=== PATIENT | female | born 1965 | race African-American/Black ===

== ENCOUNTER → 2017-08-09 | Outpatient (CLI) | payer OTHER ==
[~2017-08-09] MED LIST: ACCUNEB SO1.25 MG/1 INH; IBUPROFEN 200200 M1 PO; MEDROLDOSEPACK PO; MOBIC15 MG PO; SYMBICORT160 MCG/4. INH
--- NOTE | 2017-09-05 13:42 | PAINCON ---
[address] [address] PAIN MANAGEMENT CONSULTATION Name: TONIO PERSAUD Room: [facility]#: [id number] Admission: 08/09/17 Attend Phys: Allie Vergara MD Discharge: Date of : 69 Report #: [id number] THIS REPORT FOR: //name// CC: VANESSA KHAN DO Vanessa Vergara DATE OF SERVICE: 08/09/2017 CHIEF COMPLAINT: Pain down the low back and into the right leg. HISTORY OF PRESENT ILLNESS: The patient is a 52-year-old female who has been referred to the pain clinic for evaluation. The patient states that she is having pain and discomfort greater than a year's duration involving her low back. She describes it as achy, sharp involving her low back with radiation down into her leg. Rates it as an 8/10. Denies any problem with her bowel or bladder dysfunction. She has not had back surgery. Denies any trauma to her back. She describes it as continuous aching and sharp. Rates it as an 8/10 on most occasions. Also, notes some pain and discomfort in her left and right shoulder, midline back, upper and lower as well as some pain and discomfort along the right flank and hip area. She has tried [id number] medications like ibuprofen with no long-term benefit. The patient has had pain that radiates down the lower portion of her back into the right hip and into the lateral and posterior portion of her right leg to the knee. She has noted some changes in sensation in her left leg. States that she is intolerant of muscle relaxers secondary to causing drowsiness. She has been seen by a chiropractor in August of 2016. Also, notes that she has gone to physical therapy. ALLERGIES: CODEINE, CORTICOSTEROIDS. CURRENT MEDICATIONS: Albuterol inhalation, Symbicort 160/4.5 inhalation q. 6 hours p.r.n., ibuprofen 200 mg q. 6 hours p.r.n. PAST MEDICAL HISTORY: Allergic rhinitis, asthma, GERD, renal cyst. PAST SURGICAL HISTORY: Hysterectomy, knee surgery. 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 She is working at this juncture. LABORATORY DATA: 1. MRI of the lumbar spine dated 04/26/2017 reveals L2-L3 facet arthropathy and ligamentum flavum thickening present. There is mild bilateral neural foraminal stenosis. No significant spinal canal narrowing. Thecal sac 1.3 cm AP. 2. L3-L4 facet arthropathy and ligamentum flavum is present. There is mild bilateral neural foraminal stenosis. No significant canal narrowing 1.5 cm AP. 3. L4-L5 facet arthropathy and ligamentum flavum [place] [address] PAIN MANAGEMENT CONSULTATION Name: TONIO PERSAUD Room: [facility]#: [id number] Admission: 08/09/17 Attend Phys: Allie Vergara MD Discharge: Date of : 69 Report #: [id number] is mild bilateral neural foraminal stenosis. Thecal sac 1.3 cm AP. 4. L5-S1 facet arthropathy and ligamentum flavum thickening is present. There is mild bilateral neural foraminal stenosis. Thecal sac 1.3 cm AP. 5. Hyperintense lesion in the kidney bilaterally. Likely represent renal cysts. 6. 2.8 cm right adnexal cyst. Ultrasound evaluation may be considered. REVIEW OF SYSTEMS: Twelve-point review. General health is good, wears glasses/contacts, asthma/wheezing, frequent urination, awakens to urinate at night, joint pain, joint stiffness and swelling, weakness of muscles and joints, muscle pain with cramping, back pain, difficulty walking, recurrent frequent headaches. PAIN CLINIC ASSESSMENT: 1. Some history of osteoarthritis involving her right knee, status post knee surgery. 2. Height 5 feet 4 inches, weight 197 pounds, BMI is 34. 3. Vital signs: Blood pressure 132/92, heart rate 63, respiratory rate 16, room air saturation is 100%, temperature 98.2. 4. Pain intensity 8/10. 5. Fall risk. The patient has not fallen in the last 3 months. 6. The patient on blood thinner. The patient is not on a blood thinner. 7. History of hypertension. The patient is not being treated for hypertension. 8. Opioid therapy greater than 6 weeks. The patient is not on an opioid regimen. 9. Risk assessment tool. 10. Functional assessment tool. Pain impact score 57/70 indicating greater than moderate and packed on activities of daily living. 11. Recreational drug use. Denies use of recreational drugs. 12. Tobacco. Denies use of tobacco. 13. Alcohol use. The patient denies use of alcoholic beverages. PHYSICAL EXAMINATION: GENERAL: The patient is a well-developed, well-nourished black female. She is alert and oriented x 3. Affect is appropriate. Speech is fluent. HEENT: Normocephalic, atraumatic. Extraocular eye muscles intact. Sclerae nonicteric. Hearing within normal limits. NECK: Without adenopathy or JVD. HEART: Regular rate. S1, S2. LUNGS: Clear to auscultation without rales or rhonchi. ABDOMEN: Slightly protuberant. MUSCULOSKELETAL: Within normal limits without significant kyphosis, scoliosis or lordosis. Left and right lateral bending cause some increased low back discomfort. Left and right lateral rotation cause some increased discomfort in the low back area. Forward bending to 45 degrees cause increased pain and discomfort in the low back area. Lumbar [place] [address] PAIN MANAGEMENT CONSULTATION Name: TONIO PERSAUD Room: [facility]#: [id number] Admission: 08/09/17 Attend Phys: Allie Vergara MD Discharge: Date of : 69 Report #: [id number] discomfort in the right side. Straight leg raise with some pain and discomfort. Positive straight leg raise. The patient has some pain and discomfort in the right knee area. IMPRESSION: 1. Lumbar radiculopathy with bilateral neural foraminal stenosis at L4-L5 and L5-S1. 2. Allergic rhinitis. 3. Asthma. 4. Gastroesophageal reflux disease. RECOMMENDATIONS: We discussed treatment options with the patient. A model was used to indicate the area of probable pathology. We will have the patient try a conservative approach. A Medrol Dosepak has been provided. She will try this medication and note its efficacy. She has also been given a script for Mobic. We have explained that aspirin types of medications can cause some GI problems. She will give this medication a try. If she notes that it is causing any worsening of pain and discomfort, more so than the ibuprofen, she will stop that medication. She will follow up in the future as needed. We would like to thank you for letting us participate in her care. We will consider an epidural steroid injection should the patient's pain continued to be problematic without abatement, which radiates down into the lumbar radicular area. <ELECTRONICALLY SIGNED> By: Allie Vergara MD 09/05/17 1342 [id number]. Isael Vergara MD /[facility]
== END ==
LOC: M.PC 05-10 09:00
DX: M54.16 Radiculopathy, lumbar region (principal); M48.061 Spinal stenosis, lumbar region without neurogenic claudication; M48.07 Spinal stenosis, lumbosacral region; K21.9 Gastro-esophageal reflux disease without esophagitis; J30.9 Allergic rhinitis, unspecified

== ENCOUNTER → 2019-09-08 | Outpatient (CLI) | payer OTHER ==
[2019-09-08 11:56] LABS: ABSOLUTE EOSINOPHILS 0.1 thou/uL (0.0-0.7); ABSOLUTE LYMPHOCYTES 1.4 thou/uL (0.8-5.3); ABSOLUTE MONOCYTES 0.3 thou/uL (0.0-1.2); ABSOLUTE NEUTROPHILS 1.7 thou/uL (1.6-8.1); BASOPHILS 0.5 %; EOSINOPHILS 2.4 %; HEMATOCRIT 42.6 % (37.0-47.0); HEMOGLOBIN 14.5 gm/dL (12.0-15.0); LYMPHOCYTES 38.7 %; MCH 28.6 pg (26.0-34.0); MCV 84.1 fL (80.0-100.0); MPV 6.9 fl. (7.2-11.1); NUCLEATED RBCS 0 /100WBC; PLATELET COUNT* 347 thou/uL (150-400); POLYS 49.4 %; RBC 5.07 mil/uL (4.20-5.00); RDW-CV 13.5 % (10.5-14.5); WBC 3.5 thou/uL (4.0-11.0)
[2019-09-08 12:09] LABS: ALKALINE PHOSPHATASE 98 U/L (46-116); ANION GAP 5 mmol/L (7-16); BUN 11 mg/dL (7-18); CALCIUM 9.3 mg/dL (8.5-10.1); CHLORIDE 106 mmol/L (98-107); CHOLESTEROL 243 mg/dL (<200); CO2 31 mmol/L (21-32); GLUCOSE 86 mg/dL (70-99); HDL CHOLESTEROL 83 mg/dL (>40); LDL CHOLESTEROL 148 mg/dL (<100); SGOT 35 U/L (15-37); SGPT 72 U/L (30-65); SODIUM 142 mmol/L (136-145); TC:HDL 2.9 Ratio (Not establshd); TOTAL BILIRUBIN 0.3 mg/dL (<0.1-1.0); TOTAL PROTEIN 7.7 g/dL (6.4-8.2); TRIGLYCERIDE 62 mg/dL (<150); VLDL 12 mg/dL (<40)
[2019-09-08 12:18] LABS: SERUM ASSESSMENT Clear
[2019-09-09 02:07] LABS: GLYCOHEMOGLOBIN (HGB A1C) 5.3 % (4.8-5.6)
== END ==
LOC: M.LAB 11:39
PROVIDERS: ATTEND Nurse Practitioner
DX: Z12.31 Encounter for screening mammogram for malignant neoplasm of breast (principal); Z01.419 Encounter for gynecological examination (general) (routine) without abnormal findings; L30.8 Other specified dermatitis; R63.5 Abnormal weight gain; R63.2 Polyphagia; R23.2 Flushing; Z90.710 Acquired absence of both cervix and uterus

== ENCOUNTER → 2019-10-10 | Outpatient (CLI) | payer OTHER ==
[2019-10-10 15:24] LABS: ABSOLUTE EOSINOPHILS 0.1 thou/uL (0.0-0.7); ABSOLUTE LYMPHOCYTES 1.5 thou/uL (0.8-5.3); ABSOLUTE MONOCYTES 0.3 thou/uL (0.0-1.2); ABSOLUTE NEUTROPHILS 1.8 thou/uL (1.6-8.1); EOSINOPHILS 2.3 %; HEMATOCRIT 40.9 % (37.0-47.0); HEMOGLOBIN 13.9 gm/dL (12.0-15.0); LYMPHOCYTES 40.5 %; MCH 28.5 pg (26.0-34.0); MCHC 33.9 g/dL (28.0-37.0); MCV 84.1 fL (80.0-100.0); MONOCYTES 8.5 %; MPV 6.6 fl. (7.2-11.1); NUCLEATED RBCS 0 /100WBC; PLATELET COUNT* 331 thou/uL (150-400); POLYS 47.7 %; RBC 4.86 mil/uL (4.20-5.00); RDW-CV 13.4 % (10.5-14.5); WBC 3.7 thou/uL (4.0-11.0)
[2019-10-10 15:45] LABS: ALBUMIN 4.1 g/dL (3.4-5.0); CALCIUM 9.4 mg/dL (8.5-10.1); POTASSIUM 3.8 mmol/L (3.5-5.1); TOTAL BILIRUBIN 0.4 mg/dL (<0.1-1.0); TOTAL PROTEIN 7.6 g/dL (6.4-8.2)
[2019-10-10 16:21] LABS: ESR (SEDRATE) 3 mm/hr (0-30)
[2019-10-14 13:08] LABS: ANA INTERPRETATION Negative (Negative)
== END ==
LOC: M.LAB 14:23
PROVIDERS: ATTEND Nurse Practitioner
DX: R07.89 Other chest pain (principal); R42 Dizziness and giddiness; M94.0 Chondrocostal junction syndrome [Tietze]; T73.3XXA Exhaustion due to excessive exertion, initial encounter; M25.541 Pain in joints of right hand; M25.542 Pain in joints of left hand; M25.40 Effusion, unspecified joint

== ENCOUNTER → 2019-11-06 | Outpatient (CLI) | payer OTHER | LOC: M.MRI 16:23 | PROVIDERS: ATTEND Nurse Practitioner | DX: S83.242A Other tear of medial meniscus, current injury, left knee, initial encounter (principal); M25.862 Other specified joint disorders, left knee; X58.XXXA Exposure to other specified factors, initial encounter; Y93.89 Activity, other specified; Y92.89 Other specified places as the place of occurrence of the external cause; Y99.8 Other external cause status ==

== ENCOUNTER → 2019-12-02 | Outpatient (CLI) | payer OTHER | LOC: M.LAB 07:17 | PROVIDERS: ATTEND Orthopaedic Surgery | DX: Z01.812 Encounter for preprocedural laboratory examination (principal); Z20.828 Contact with and (suspected) exposure to other viral communicable diseases ==

== ENCOUNTER → 2020-01-26 | Outpatient (CLI) | payer OTHER ==
[2020-01-26 12:08] LABS: ABSOLUTE EOSINOPHILS 0.1 thou/uL (0.0-0.7); ABSOLUTE LYMPHOCYTES 1.3 thou/uL (0.8-5.3); ABSOLUTE MONOCYTES 0.4 thou/uL (0.0-1.2); ABSOLUTE NEUTROPHILS 2.3 thou/uL (1.6-8.1); EOSINOPHILS 1.7 %; HEMATOCRIT 41.7 % (37.0-47.0); HEMOGLOBIN 13.9 gm/dL (12.0-15.0); LYMPHOCYTES 31.7 %; MCHC 33.4 g/dL (28.0-37.0); MCV 83.9 fL (80.0-100.0); MONOCYTES 9.7 %; MPV 6.4 fl. (7.2-11.1); NUCLEATED RBCS 0 /100WBC; PLATELET COUNT* 353 thou/uL (150-400); POLYS 55.9 %; RBC 4.97 mil/uL (4.20-5.00); RDW-CV 13.8 % (10.5-14.5); WBC 4.1 thou/uL (4.0-11.0)
[2020-01-26 12:25] LABS: ALBUMIN 4.1 g/dL (3.4-5.0); ALKALINE PHOSPHATASE 97 U/L (46-116); ANION GAP 8 mmol/L (7-16); BUN 10 mg/dL (7-18); CALCIUM 9.7 mg/dL (8.5-10.1); CHLORIDE 106 mmol/L (98-107); CHOLESTEROL 254 mg/dL (<200); CO2 29 mmol/L (21-32); GLUCOSE 91 mg/dL (70-99); HDL CHOLESTEROL 83 mg/dL (>40); LDL CHOLESTEROL 157 mg/dL (<100); POTASSIUM 4.3 mmol/L (3.5-5.1); SGOT 32 U/L (15-37); SGPT 51 U/L (30-65); SODIUM 143 mmol/L (136-145); TC:HDL 3.1 Ratio (Not establshd); TOTAL BILIRUBIN 0.4 mg/dL (<0.1-1.0); TOTAL PROTEIN 7.9 g/dL (6.4-8.2); TRIGLYCERIDE 72 mg/dL (<150); VLDL 14 mg/dL (<40)
[2020-01-26 12:26] LABS: SERUM ASSESSMENT Clear
[2020-01-26 13:08] LABS: ESR (SEDRATE) 0 mm/hr (0-30)
== END ==
LOC: M.RAD 11:52
PROVIDERS: ATTEND Nurse Practitioner
DX: M54.41 Lumbago with sciatica, right side (principal); G89.29 Other chronic pain; R55 Syncope and collapse; I10 Essential (primary) hypertension; D72.819 Decreased white blood cell count, unspecified; R42 Dizziness and giddiness; E78.5 Hyperlipidemia, unspecified; M41.86 Other forms of scoliosis, lumbar region; Z91.09 Other allergy status, other than to drugs and biological substances

== ENCOUNTER → 2020-02-02 | Outpatient (CLI) | payer OTHER ==
[2020-02-02 10:30] VITALS: BP 132/87
[2020-02-02 10:40] VITALS: BP 134/83
[2020-02-02 10:50] VITALS: BP 141/86
[2020-02-02 10:55] VITALS: BP 118/80
[2020-02-02 11:00] VITALS: BP 95/57
--- NOTE | 2020-02-06 09:23 | CARD ---
[address] [address] CARDIAC CATH REPORT Name: TONIO PERSAUD Room: [facility]#: [id number] Admission: 02/02/20 Attend Phys: Reynaldo Kidd MD, Discharge: Date of : 69 Report #: [id number] THIS REPORT FOR: //name// cc: Rosemary Flood Jacqueline D. FNP ~ CC: Maximus Kidd MD [facility] Reynaldo Flood DATE OF SERVICE: 02/04/2020 TILT TABLE TEST The patient's resting blood pressure and heart rate were normal with values of 132/87, with a heart rate of 75. There was no significant change with tilting of the patient. However, after administration of nitrates, approximately 5 minutes into that phase, the patient developed hypotension and lost consciousness. Blood pressure fell to a recorded value of 95/57 and subsequent values were felt to be lower, though not recorded on the portion of the chart available to me. There was complete alteration of consciousness. On returning the patient to the supine position and infusing fluids, there was shinto of normal heart rate, blood pressure and level of consciousness. IMPRESSION: Positive tilt table test for development of syncope with haley loss of consciousness with associated hypotension. There was a modest increase in heart rate to 105-110 at that time. <ELECTRONICALLY SIGNED> By: Rober Mcdonald MD, [facility] 02/06/20 0923 [id number] Mcdonald MD, [facility] /nt
== END ==
LOC: M.CL 09:45
PROVIDERS: ATTEND Internal Medicine
DX: R55 Syncope and collapse (principal); E78.5 Hyperlipidemia, unspecified; J45.909 Unspecified asthma, uncomplicated; I10 Essential (primary) hypertension; K21.9 Gastro-esophageal reflux disease without esophagitis; E66.9 Obesity, unspecified; Z90.710 Acquired absence of both cervix and uterus; Z98.890 Other specified postprocedural states; Z79.899 Other long term (current) drug therapy; Z82.49 Family history of ischemic heart disease and other diseases of the circulatory system

== ENCOUNTER → 2020-02-04 | Outpatient (CLI) | payer OTHER | LOC: M.ULTRA 08:52 | PROVIDERS: ATTEND Internal Medicine | DX: N20.0 Calculus of kidney (principal); K21.9 Gastro-esophageal reflux disease without esophagitis; R07.9 Chest pain, unspecified ==

== ENCOUNTER → 2020-05-28 | Outpatient (CLI) | payer OTHER ==
[~2020-05-28] MED LIST changes: +FLONASE 0.05%50 MCG NARES; +NORVASC5 MG PO; +PAROXETINE HCL10 MG PO; +PROAIR HFA8.5 GM INH; +RABEPRAZOLE SOD20 MG PO; +ZOCOR 20 MG TAB20 M1 PO
== END ==
LOC: M.CT 13:00
PROVIDERS: ATTEND Urology
DX: N28.1 Cyst of kidney, acquired (principal); N28.89 Other specified disorders of kidney and ureter; K57.30 Diverticulosis of large intestine without perforation or abscess without bleeding; N20.0 Calculus of kidney

== ENCOUNTER → 2020-07-13 | Outpatient (CLI) | payer OTHER | LOC: M.MRI 08:11 | PROVIDERS: ATTEND Urology | DX: N28.1 Cyst of kidney, acquired (principal); N28.9 Disorder of kidney and ureter, unspecified ==

== ENCOUNTER → 2020-10-15 | Outpatient (CLI) | payer OTHER ==
[2020-10-15 13:27] LABS: ABSOLUTE EOSINOPHILS 0.1 thou/uL (0.0-0.7); ABSOLUTE LYMPHOCYTES 1.7 thou/uL (0.8-5.3); ABSOLUTE MONOCYTES 0.3 thou/uL (0.0-1.2); ABSOLUTE NEUTROPHILS 1.9 thou/uL (1.6-8.1); BASOPHILS 1.1 %; EOSINOPHILS 1.6 %; HEMATOCRIT 38.7 % (37.0-47.0); HEMOGLOBIN 13.2 gm/dL (12.0-15.0); LYMPHOCYTES 42.2 %; MCH 28.7 pg (26.0-34.0); MCHC 34.2 g/dL (28.0-37.0); MONOCYTES 8.4 %; MPV 6.3 fl. (7.2-11.1); NUCLEATED RBCS 0 /100WBC; PLATELET COUNT* 354 thou/uL (150-400); POLYS 46.7 %
[2020-10-15 13:40] LABS: ALBUMIN 4.3 g/dL (3.4-5.0); ALKALINE PHOSPHATASE 98 U/L (46-116); ANION GAP 11 mmol/L (7-16); BUN 13 mg/dL (7-18); CALCIUM 9.4 mg/dL (8.5-10.1); CHLORIDE 105 mmol/L (98-107); CHOLESTEROL 191 mg/dL (<200); CO2 27 mmol/L (21-32); CREATININE 0.9 mg/dL (0.6-1.3); GLUCOSE 83 mg/dL (70-99); HDL CHOLESTEROL 84 mg/dL (>40); LDL CHOLESTEROL 98 mg/dL (<100); POTASSIUM 4.3 mmol/L (3.5-5.1); SGOT 22 U/L (15-37); SGPT 33 U/L (30-65); SODIUM 143 mmol/L (136-145); TC:HDL 2.3 Ratio (Not establshd); TOTAL BILIRUBIN 0.4 mg/dL (<0.1-1.0); TOTAL PROTEIN 7.9 g/dL (6.4-8.2); TRIGLYCERIDE 47 mg/dL (<150); VLDL 9 mg/dL (<40)
[2020-10-15 13:42] LABS: SERUM ASSESSMENT Clear
[2020-10-15 14:50] LABS: ESR (SEDRATE) 8 mm/hr (0-30)
== END ==
LOC: M.LAB 12:37
PROVIDERS: ATTEND Nurse Practitioner Family
DX: Z13.220 Encounter for screening for lipoid disorders (principal); Z13.29 Encounter for screening for other suspected endocrine disorder; M54.5 Low back pain

== ENCOUNTER → 2020-11-09 | Outpatient (CLI) | payer OTHER | LOC: M.RAD 16:32 | PROVIDERS: ATTEND Orthopaedic Surgery | DX: M17.12 Unilateral primary osteoarthritis, left knee (principal) ==

== ENCOUNTER → 2020-11-12 | Outpatient (CLI) | payer OTHER | LOC: M.MRI 14:11 | PROVIDERS: ATTEND Nurse Practitioner Family | DX: M47.816 Spondylosis without myelopathy or radiculopathy, lumbar region (principal); M51.37 Other intervertebral disc degeneration, lumbosacral region; M48.07 Spinal stenosis, lumbosacral region; M51.25 Other intervertebral disc displacement, thoracolumbar region; M48.061 Spinal stenosis, lumbar region without neurogenic claudication ==

== ENCOUNTER → 2021-03-03 | Outpatient (CLI) | payer OTHER ==
[2021-03-03 11:04] LABS: ALBUMIN 4.1 g/dL (3.4-5.0); CALCIUM 9.8 mg/dL (8.5-10.1); CREATININE 0.9 mg/dL (0.6-1.3); POTASSIUM 4.7 mmol/L (3.5-5.1); TOTAL BILIRUBIN 0.4 mg/dL (<0.1-1.0); TOTAL PROTEIN 7.9 g/dL (6.4-8.2)
== END ==
LOC: M.LAB 10:23
PROVIDERS: ATTEND Nurse Practitioner Family
DX: I10 Essential (primary) hypertension (principal)